=== PATIENT | male | born 1960 | race Caucasian/White ===

== ENCOUNTER 2020-08-24 01:27 | Outpatient (CLI) | payer OTHER, SELFPAY ==
[2020-08-24 19:25] LABS: SARS-CoV-2 RNA PCR Negative
== END 2020-08-24 01:28 | disposition home or self-care (01) ==
LOC: ANHCOVIDDT 01:27
PROVIDERS: Visit Provider Internal Medicine Critical Care Medicine
DX: Z01.812 Encounter for preprocedural laboratory examination (principal); Z20.828 Contact with and (suspected) exposure to other viral communicable diseases
CPT/HCPCS: 87635; C9803; U0003

== ENCOUNTER 2020-08-26 07:20 | Outpatient (CLI) | payer OTHER, SELFPAY ==
--- NOTE | 2020-09-22 21:22 | WPDSLEEPSTUD ---
Sleep Study Date of Study: 08/26/20 Ordering Provider: Jaziel Payan PA-C Interpreting Physician: Tarah Streeter MD Sleep Study Type: Polysomnogram Height: 1.75 m Weight: 77.111 kg Body Mass Index: 25.1 Lebo: 14 Reason for Sleep Study Loud snoring, hypersomnolence. Sleep History Shree Knight is a 59 yo man with a long history of loud snoring and excessive daytime sleepiness. He takes Trazodone when needed to help him fall asleep. His father and brothers have sleep issues, as well. He occasionally snores, however it is only loud enough rarely to cause others to complain. He occasionally has problems at night with waking up due to heartburn,belching or coughing. He never wakes at night feeling short of breath. He rarely has trouble sleeping with a cold. HE rarely has breathing problems at night witnessed by others. He frequently sweats excessively at night, occasionally has noticed his heart pounding at night, occasionally falls asleep in the day, occasionally involuntarily, occasionally while driving. He does not fall asleep during physical activity nor does he lose muscle tone with strong emotion. He occasionally has daytime difficulties due to excessive sleepiness. He rarely feels paralyzed on aking or falling asleep, and rarely has vivid dreamlike scenes on waking or falling asleep. . He is never afraid to fall asleep, , occasionally has nightmares occasion remembers his dreams and occasionally has racing thoughts. He rarely feels sad or depressed. He occasionally has anxiety and muscular tension. He rarely notices parts of his body jerking, or occasionally kicks at night really has crawling and aching feelings in his legs and rarely has leg pain at night. He does not have morning jaw pain. He rarely grinds his teeth at night. He occasionally is bothered by pain during the day. Never awakened with pain at night. he occasionally wakes up feeling stiff in the morning was sore achy muscles and frequently wakes up with pain in the neck and spine. he has fatigue memory problems concentration difficulties nightmares normal bedtime is 9:00 p.m. taking 1/2 hour to fall asleep typically waking 3-4 times for a 1/2 hour. While awake he will go urinate. He wakes up 4 in the morning. Weekend schedule is the same. He estimates 7 hours of sleep at night. He does take naps. A short nap is not refreshing. He usually feels good in the morning. Habits: Tobacco 30 years ago. Caffeine 2 cups of coffee in the morning. 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 type II, uncontrolled Essential (primary) hypertension Surgical History Surgical History History of vasectomy Family History Family History Mother Family history of arthritis Father Diabetes mellitus Depression Family history of bipolar disorder Colon polyp Obstructive sleep apnea Sibling Depression Family history of elevated blood lipids Obstructive sleep apnea Social History Social History Smoking status: Never smoker Alcohol intake: current Medications Home Medications Medication Instructions Recorded Confirmed Type trazodone 100 mg tablet 100 mg PO .COMPLEX #90 tablet 10/20/19 Rx sildenafil 50 mg tablet 50 mg PO DAILY PRN #30 tablet 11/27/19 Rx valacyclovir 1 gram tablet 2,000 mg PO Q12H PRN #14 tablet 11/27/19 Rx triamcinolone acetonide 40 mg/mL 20 mg INFILTRATE ONCE #0.5 ml 02/24/20 02/24/20 Rx suspension for injection triamcinolone acetonide 40 mg/mL 20 mg INFILTRATE ONCE #0.5 ml 02/24/20 02/24/20 Rx suspension for injection empagliflozin 12.5 mg-metformin ER 1 tablet PO BID #180 each 03/11/20 Rx 1,000 mg tablet,extended rel 24 hr blood sugar diagnostic #100 e
[2020-09-22 22:40] VITALS: BMI 25.1
== END 2020-08-26 07:21 | disposition home or self-care (01) ==
LOC: ANHCSM 07:21
PROVIDERS: Visit Provider Physician Assistant
DX: G47.33 Obstructive sleep apnea (adult) (pediatric) (principal)
CPT/HCPCS: 95810

== ENCOUNTER 2020-10-23 01:49 | Outpatient (CLI) | payer OTHER, SELFPAY ==
[2020-10-23 18:31] LABS: SARS-CoV-2 RNA PCR Negative
== END 2020-10-23 01:50 | disposition home or self-care (01) ==
LOC: ANHCOVIDDT 01:49
PROVIDERS: PCP Family Medicine; Visit Provider Internal Medicine Gastroenterology
DX: Z01.812 Encounter for preprocedural laboratory examination (principal); Z20.828 Contact with and (suspected) exposure to other viral communicable diseases
CPT/HCPCS: 87635; C9803; U0003

== ENCOUNTER 2020-10-27 02:43 | Day surgery (SDC) | payer OTHER, SELFPAY ==
[2020-10-18 12:09] VITALS: BMI 25.2
[2020-10-27 06:22] VITALS: BP 117/70; PULSE 64; RESP 22; TEMP 36.4; O2SAT 100; BMI 25.4
[2020-10-27] MEDS: LACTATED RINGERS 1,000 ML 150 ML IV CONT (06:40)
[2020-10-27 06:41] LABS: Glucose Point of Care 110 (65-105)
--- NOTE | 2020-10-27 07:16 | WPDANESEPPF ---
Anes - Initial Pre Proc Eval Procedure: Operation Date: 10/27/20 07:30 Proposed Procedures p Screening Colonoscopy - Collin Mccabe MD Date/Time: 10/27/20 07:16 Surgeon: Collin Mccabe MD Pre Op Diagnosis: Neoplasm Screening/Fam Hx Colon Polyps Patient Data Age: 60 Gender: M Height: 5 ft 10 in Weight: 80.3 kg Last Vital Signs Temp 97.6 F 10/27/20 06:22 Pulse 64 10/27/20 06:22 Resp 22 H 10/27/20 06:22 BP 117/70 10/27/20 06:22 Pulse Ox 100 10/27/20 06:22 Allergies Allergy/AdvReac Type Severity Reaction Status Date / Time cephalexin Allergy Unknown Skin Verified 01/29/20 10:38 Reaction Home Medications Medication Instructions Recorded Confirmed Type trazodone 100 mg tablet 100 mg PO .COMPLEX #90 tablet 10/20/19 10/27/20 Rx empagliflozin 12.5 mg-metformin ER 1 tablet PO BID #180 each 03/11/20 10/27/20 Rx 1,000 mg tablet,extended rel 24 hr blood sugar diagnostic #100 each 04/09/20 Rx lancets #100 each 04/09/20 Rx rosuvastatin 10 mg tablet 10 mg PO DAILY #90 tablet 07/05/20 10/27/20 Rx semaglutide [Ozempic] 1 mg SUBCUT WEEKLY 10/18/20 10/27/20 History multivitamin [One A Day] 1 tablet PO DAILY 10/27/20 10/27/20 History vitamin E [Natural Vitamin E] 200 unit PO DAILY 10/27/20 10/27/20 History Laboratory Tests 10/27/20 06:37 POC Capillary Glucose 110 mg/dl mg/dl (65-105) Patient hx anesthesia problems: none Family hx anesthesia problems: none PMFSH Past Medical History Medical History (Updated 09/22/20 @ 22:25 by Tarah Streeter MD) Arthritis DM w/o complication type II, uncontrolled Essential (primary) hypertension Surgical History Surgical History History of vasectomy Family History Family History Mother Family history of arthritis Father Diabetes mellitus Depression Family history of bipolar disorder Colon polyp Obstructive sleep apnea Sibling Depression Family history of elevated blood lipids Obstructive sleep apnea Social History Social History Smoking packs per day: 2 Smoking cigarettes per day: 40.0 Years smoked: 10 Smoking pack-years: 20.00 Smoking status: Never smoker Tobacco type: cigarettes Alcohol intake: current Substance use type: does not use Spiritual care concerns: No Anes - Eval Final PreProcedure Day of Procedure 10/27/20 07:16 Patient weight: normal Heart: regular rate and rhythm Lungs: clear to auscultation Airway: Mallampati scale class II Neurological: alert and oriented Last oral intake: >/= 8 hours ASA classification: III Emergent: no Anesthetic plan: proceed Anesthesia type and monitoring: general GIVS and standard monitoring Informed Consent: The patient's anesthetic plan and its attendant risks and benefits were discussed with the patient/family/POA. Questions were solicited and answers provided to the satisfaction of the patient/family/POA.
--- NOTE | 2020-10-27 07:54 | WPDGICN ---
Assessment and Plan Assessment and plan (1) Family history of colonic polyps: Code(s): Z83.71 - Family history of colonic polyps Status: Acute Assessment and Plan: Patient's father had colon polyps. Patient presents today for surveillance colonoscopy. High-fiber diet advised. GI Consult Note Consult date/time: 10/27/20 07:54 HPI: Shree Alejandra is a 60 year old male Presents for surveillance colonoscopy. Patient's current weight appetite bowel movements are normal. Patient denies abdominal pain. Family history is significant that his father had colon polyps. Patient last exam 5 years ago was unremarkable. Current weight appetite bowel movements are normal. Review of Systems Review of Systems: All systems reviewed & are unremarkable except as noted in HPI and below PMFSH Past Medical History Medical History (Updated 10/27/20 @ 07:55 by Collin Mccabe MD) Arthritis DM w/o complication type II, uncontrolled Essential (primary) hypertension Surgical History Surgical History History of vasectomy Family History Family History Mother Family history of arthritis Father Diabetes mellitus Depression Family history of bipolar disorder Colon polyp Obstructive sleep apnea Sibling Depression Family history of elevated blood lipids Obstructive sleep apnea Social History Social History Smoking packs per day: 2 Smoking cigarettes per day: 40.0 Years smoked: 10 Smoking pack-years: 20.00 Smoking status: Never smoker Tobacco type: cigarettes Alcohol intake: current Substance use type: does not use Spiritual care concerns: No Meds Home Medications and Allergies Home Medications Medication Instructions Recorded Confirmed Type trazodone 100 mg tablet 100 mg PO .COMPLEX #90 tablet 10/20/19 10/27/20 Rx empagliflozin 12.5 mg-metformin ER 1 tablet PO BID #180 each 03/11/20 10/27/20 Rx 1,000 mg tablet,extended rel 24 hr blood sugar diagnostic #100 each 04/09/20 Rx lancets #100 each 04/09/20 Rx rosuvastatin 10 mg tablet 10 mg PO DAILY #90 tablet 07/05/20 10/27/20 Rx semaglutide [Ozempic] 1 mg SUBCUT WEEKLY 10/18/20 10/27/20 History multivitamin [One A Day] 1 tablet PO DAILY 10/27/20 10/27/20 History vitamin E [Natural Vitamin E] 200 unit PO DAILY 10/27/20 10/27/20 History Allergies Allergy/AdvReac Type Severity Reaction Status Date / Time cephalexin Allergy Unknown Skin Verified 01/29/20 10:38 Reaction Vital Signs Vital Signs - 24 hr 10/27/20 06:22 Temperature 97.6 F Pulse Rate 64 Respiratory Rate 22 H Blood Pressure 117/70 Pulse Oximetry 100 Exam Narrative: Exam Narrative: Physical exam reveals patient to be alert. Vital signs stable. HEENT exam unremarkable. Lungs are clear to auscultation and percussion. Heart is without murmur or extra sounds. Abdominal exam bowel sounds are present soft nontender with no organomegaly. Digital external rectal exam is normal.
[2020-10-27 07:59] VITALS: BP 99/62; PULSE 75; RESP 20; O2SAT 99
[2020-10-27 08:09] VITALS: BP 97/60; PULSE 60; RESP 19; O2SAT 99
[2020-10-27 08:19] VITALS: BP 111/70; PULSE 79; RESP 22; O2SAT 99
== END 2020-10-27 08:34 | disposition home or self-care (01) ==
PROVIDERS: PCP Family Medicine; Visit Provider Internal Medicine Gastroenterology
PROC: 0DJD8ZZ Inspection of Lower Intestinal Tract, Via Natural or Artificial Opening Endoscopic (ICD-10-PCS; CPT 45378; principal; 2020-10-27 07:30)
DX: Z12.11 Encounter for screening for malignant neoplasm of colon (principal); K64.8 Other hemorrhoids; I10 Essential (primary) hypertension; E11.9 Type 2 diabetes mellitus without complications; Z79.84 Long term (current) use of oral hypoglycemic drugs
CPT/HCPCS: 45378; J2704; J7120

== ENCOUNTER 2021-02-01 11:34 | Outpatient (CLI) | payer OTHER, SELFPAY | END 2021-02-01 11:35 | disposition home or self-care (01) | LOC: ANHCOVIDVC 11:34 | PROVIDERS: PCP Family Medicine | DX: Z23 Encounter for immunization (principal) | CPT/HCPCS: 0001A; 91300 ==

== ENCOUNTER 2021-02-22 11:31 | Outpatient (CLI) | payer OTHER, SELFPAY | END 2021-02-22 11:32 | disposition home or self-care (01) | LOC: ANHCOVIDVC 11:31 | PROVIDERS: PCP Family Medicine | DX: Z23 Encounter for immunization (principal) | CPT/HCPCS: 0002A; 91300 ==

== ENCOUNTER → 2021-03-08 07:15 | Outpatient (CLI) | payer OTHER, SELFPAY ==
[2021-03-08 20:45] LABS: SARS-CoV-2 RNA PCR Negative
== END ==
PROVIDERS: PCP Family Medicine; Visit Provider Family Medicine
DX: Z20.822 Contact with and (suspected) exposure to COVID-19 (principal)
CPT/HCPCS: C9803; U0003; U0005

== ENCOUNTER → 2022-09-18 13:41 | Outpatient (CLI) | payer OTHER, SELFPAY ==
--- NOTE | ~2022-09-18 | XR_ITS ---
XR hip LT min 3V w AP pelvis DATE: 09/18/2022 13:58 INDICATION: Left hip pain after golfing. No fall. TECHNIQUE: AP pelvis. AP and lateral views of left hip. COMPARISON: 07/09/2014 pelvis FINDINGS: There is mild left hip osteoarthritis. Moderately severe right hip osteoarthritis. The pubic symphysis and sacroiliac joints are intact. No pelvic fracture or bone destruction is detec neftali. IMPRESSION: Bilateral hip osteoarthritis, much more prominent on the right Reviewed, dictated and finalized at location A.
== END ==
PROVIDERS: PCP Physician Assistant; Visit Provider Physician Assistant
DX: M25.559 Pain in unspecified hip (principal); M16.0 Bilateral primary osteoarthritis of hip
CPT/HCPCS: 73502